=== PATIENT | male | born 1980 | race Hispanic/Latino ===

== ENCOUNTER 2020-06-21 00:18 | Emergency (ER) | payer SELFPAY ==
[~2020-06-21] VITALS: Ht 165.1 cm; Wt 86.2 kg
== END 2020-06-21 01:10 | disposition home or self-care (01) ==
LOC: ED 00:18
DX: S83.92XA Sprain of unspecified site of left knee, initial encounter (principal); S40.011A Contusion of right shoulder, initial encounter; X58.XXXA Exposure to other specified factors, initial encounter
CPT/HCPCS: 73030; 73560; 99283-25